=== PATIENT | male | born 1960 | race Two or more races ===

== ENCOUNTER → 2018-02-02 | Outpatient (CLI) | payer OTHER ==
[2018-02-02 14:02] LABS: FOLATE 7.32 ng/mL (>2.76)
== END ==
LOC: OD 11:45
PROVIDERS: ATTEND Specialist
DX: G31.84 Mild cognitive impairment of uncertain or unknown etiology (principal); G47.33 Obstructive sleep apnea (adult) (pediatric)
CPT/HCPCS: 36415; 82607; 82746

== ENCOUNTER → 2018-05-09 | Outpatient (CLI) | payer OTHER | LOC: OD 11:59 | PROVIDERS: ATTEND Specialist | DX: G47.33 Obstructive sleep apnea (adult) (pediatric) (principal) | CPT/HCPCS: 36415; 82607 ==

== ENCOUNTER → 2018-08-04 | Outpatient (CLI) | payer OTHER ==
[2018-08-04 13:41] LABS: CHOLESTEROL 214.38 mg/dL (0-200)
== END ==
LOC: OD 11:44
PROVIDERS: ATTEND Psychiatry & Neurology Psychiatry
DX: F31.81 Bipolar II disorder (principal); Z79.899 Other long term (current) drug therapy
CPT/HCPCS: 36415; 82465; 83036; 83721; 84439; 84443; 84478